=== PATIENT | male | born 1955 | race African-American/Black ===

== ENCOUNTER 2017-04-22 05:45 | Inpatient (IN) | payer OTHER ==
[2017-04-22] MEDS: SODIUM CHLOR 0.9% 1000 ML INJ 1,000 ML IV SCH ×2 (01:43→11:49)
[2017-04-22 05:40] VITALS: BP 113/66; PULSE 86; RESP 17; TEMP 97.4; O2SAT 100
[~2017-04-22 05:45] MED LIST: BISACODYL 10 MG SUPP RECTAL PRN; LACTULOSE SYRUP 20 GM/30 ML CUP PO PRN; MAGNESIUM HYDROXIDE SUSP 30 ML CUP PO PRN; MORPHINE SULFATE 4 MG/ML INJ IV PUSH PRN; NALOXONE HCL 0.4 MG/ML AMP IV PUSH PRN; ONDANSETRON HCL 4 MG/2 ML VIAL IVP PRN; SENNOSIDES 8.6 MG TAB PO PRN; SODIUM CHLORIDE 0.9% FLUSH 10 ML FLUSH IV FLUSH PRN
[2017-04-22 08:00] VITALS: BP 117/66; PULSE 94; RESP 18; TEMP 99.1; O2SAT 100
--- NOTE | 2017-04-22 10:33 | HHI.HP ---
HPI Service CP Hospitalists Primary Care Physician Non-Staff Admission Diagnosis prostate mass uti/ possible sepsis Travel History International Travel<30 Days: No Contact w/Intl Traveler <30 Da: No History of Present Illness Pt is 61 yo male presenting to ED with weakness, fever/chills, and rectal pain. Pt says he had some known microscopic blood in urine for quite a while. Pt reports following with Dr Dinh [facility] in [place]. Pt says he was told of an enlarged prostate in the past and elevated psa. Pt says a prostate bx was done last yr and reports were negative for malignancy. Lately he noticed more hematuria and a CT a/p was done last week and a Cystoscopy on Monday. On Monday he developed fevers/chills and weakness. These symptoms persisted. He was unable to go to work. Developed n/v and some dysuria. Pressure in rectum area. Given bactrim Monday by Urology but pt sx's persisted and presented to ED and transferred here. CT imaging concerning for enlarged prostate and masslike area extending to rectal area. vanco and zosyn given in ED. Pt says his fever at home was up to 105. Review of Systems Other fevers weakness achy n/v dysuria rectal pain/pressure Past Family Social History Past Medical History enlarged prostate "prostate bx" 2015.."neg" cystoscopy last week by Dr Dinh in [place]. reported neg by pt. hematuria right shoulder/bilateral knee arthroscopic surgery Reported Medications bactrim x 1 day Allergies: Coded Allergies: No Known Allergies (Unverified , 04/21/17) Family History brother prostate ca Social History no tob/etoh Physical Exam Vital Signs nad heart reg lung cta abd s/nt/bs ext no edema Vital Signs Date Time Temp Pulse Resp B/P (MAP) Pulse Ox O2 Delivery O2 Flow Rate FiO2 04/22/17 08:00 99.1 94 18 117/66 (83) 100 04/22/17 05:40 97.4 86 17 113/66 (82) 100 Caprini VTE Risk Assessment Caprini Risk Assessment Model Point Value = 1 Point Value = 2 Point Value = 3 Point Value = 5 Age 41-60 Minor surgery BMI > 25 kg/m2 Swollen legs Varicose veins or History of unexplained or recurrent spontaneous Oral contraceptives or hormone replacement Sepsis (< 1 month) Serious lung disease, including pneumonia (< 1 month) Abnormal pulmonary function Acute myocardial infarction Congestive heart failure (< 1 month) History of inflammatory bowel disease Medical patient at bed rest Age 61-74 Arthroscopic surgery Major open surgery (> 45 min) Laparoscopic surgery (> 45 min) Malignancy Confined to bed (> 72 hours) Immobilizing plaster cast Central venous access Age >= 75 History of VTE Family history of VTE Factor V Leiden Prothrombin [id number] Lupus anticoagulant Anticardiolipin antibodies Elevated serum homocysteine Heparin-induced thrombocytopenia Other congenital or acquired thrombophilia Stroke (< 1 month) Elective arthroplasty Hip, pelvis, or leg fracture Acute spinal cord injury (< 1 month) Prophylaxis Regimen Total Risk Factor Score Risk Level Prophylaxis Regimen 0-1 Low Early ambulation 2 Moderate Order ONE of the following: *Sequential Compression Device (SCD) *Heparin 5000 units SQ BID 3-4 Higher Order ONE of the following medications: *Heparin 5000 units SQ TID *Enoxaparin/Lovenox 40 mg SQ daily (WT < 150 kg, CrCl > 30 mL/min) *Enoxaparin/Lovenox 30 mg SQ daily (WT < 150 kg, CrCl > 10-29 mL/min) *Enoxaparin/Lovenox 30 mg SQ BID (WT < 150 kg, CrCl > 30 mL/min) AND/OR *Sequential Compression Device (SCD) 5 or more Highest Order ONE of the following medications: *Heparin 5000 units SQ TID (Preferred with Epidurals) *Enoxaparin/Lovenox 40 mg SQ daily (WT < 150 kg, CrCl > 30 mL/min) *Enoxaparin/Lovenox 30 mg SQ daily (WT < 150 kg, CrCl > 10-29 mL/min) *Enoxaparin/Lovenox 30 mg SQ BID (WT < 150 kg, CrCl > 30 mL/min) AND *Sequential Compression Device (SCD) Assessment and Plan Problem List: (1) Prostate mass ICD Codes: N42.9 - Disorder of prostate, unspecified Status: Acute Plan: 1. Massive prostate 7cm with apparent mass projecting toward rectum around 4cm. concerning for malignancy. 2. uti after cystoscopy on Monday with probably sepsis CRS consulted by ED...will discuss...?Urology gentle ivf cont broad spectrum abx to cover urine f/u blood and urine cx's obtain records from [place]. (2) Hematuria ICD Codes: R31.9 - Hematuria, unspecified Status: Acute (3) UTI (urinary tract infection) ICD Codes: N39.0 - Urinary tract infection, site not specified Status: Acute Braeden Colvin MD Apr 22, 2017 10:33
[2017-04-22] MEDS ORDERED: ONDANSETRON HCL 4 MG/2 ML VIAL IV PUSH PRN (10:45)
[2017-04-22] MEDS: ACETAMINOPHEN 325 MG TAB PO PRN ×2 (11:41→20:00)
[2017-04-22] MEDS: PIPERACIL-TAZO 3.375 GM PREMIX 50 ML IV SCH ×3 (11:42→22:59)
[2017-04-22] MEDS: SODIUM CHLORIDE 0.9% FLUSH 10 ML FLUSH IV FLUSH SCH ×2 (11:49→20:00)
[2017-04-22] MEDS: DOCUSATE SODIUM 50 MG/SENNA 8.6 MG TAB PO SCH ×2 (11:50→20:00)
--- NOTE | 2017-04-22 11:53 | HHI.PR ---
Subjective Remarks C/R Surg Events reviewed - ?fever, rectal pain, mass in prostate area pressing on rectal wall BM normal, no BRB, no diarrhea, some tenesmus, Colon several yrs ago - few polyps No F. Hx colon cancer Objective - Vital Signs Date Time Temp Pulse Resp B/P (MAP) Pulse Ox O2 Delivery O2 Flow Rate FiO2 04/22/17 08:00 99.1 94 18 117/66 (83) 100 Other Results PE alert Abd - soft, flat, non-tender Rectal -lg prostate, rectal wall smooth, no BRB, no fluctuence A/P Assessment and Plan Imp: reviewed CT - old CT pending films seems to be prostate enlargement, ?mass ?fever - abscess no obv rectal involvement on PE, will discuss with Urology Frandy Barahona MD Apr 22, 2017 11:53
[2017-04-22 12:00] VITALS: BP 109/57; PULSE 103; RESP 18; TEMP 102.1; O2SAT 98
[2017-04-22 12:55] LABS: ANION GAP 10 MEQ/L (5-15); AST (GOT) 20 U/L (15-37); BICARBONATE 23.9 MEQ/L (21.0-32.0); BLOOD UREA NITROGEN 17 MG/DL (7-18); CHLORIDE 103 MEQ/L (98-107); GLOMERULAR FILTRATION RATE 87 ML/MIN (>89); POTASSIUM 3.7 MEQ/L (3.5-5.1); SODIUM (NA) 137 MEQ/L (136-145)
[2017-04-22 12:58] LABS: ALKALINE PHOSPHATASE 78 U/L (45-117); ALT (GPT) 38 U/L (12-78); TOTAL BILIRUBIN ADULT 0.8 MG/DL (0.2-1.0)
[2017-04-22 16:00] VITALS: BP 112/66; PULSE 101; RESP 18; TEMP 96.5; O2SAT 100
--- NOTE | 2017-04-22 18:21 | PD.CONS ---
HPI Service Urology Consult Requested By Primary Care Physician Non-Staff Diagnosis: (1) Prostate mass ICD Code: N42.9 - Disorder of prostate, unspecified (2) Hematuria ICD Code: R31.9 - Hematuria, unspecified (3) UTI (urinary tract infection) ICD Code: N39.0 - Urinary tract infection, site not specified History of Present Illness 61yo male with history of BPH and intermittent hematuria followed by Dr. Dinh [facility] in [place] seen in consultation for UTI and large prostate with questionable mass. Patient was evaluated by Dr. Dinh due to his large prostate where he underwent a recent cystoscopy this week. Subsequently he developed fevers and increasing difficulty in voiding. He presented tot [facility] ED and then transferred to [facility]. Patient was found to have a significantly enlarged prostate on CT scan yesterday with questionable mass/abscess also noted on the left posterior aspect of the prostate. Patient also had one episode of fevers today as high as 102. Currently comfortable, no hematuria. Voiding well, however reports slow urinary stream. Was started on Finasteride, however he stoped this as the side effects were unpleasant. Of note, patient had a prostate biopsy in the past which was negative. Review of Systems ROS Limitations: Clinical Condition Constitutional: COMPLAINS OF: Fever Endocrine: DENIES: Heat/cold intolerance Eyes: DENIES: Blurred vision Ears, nose, mouth, throat: DENIES: Hearing loss Respiratory: DENIES: Apneas Cardiovascular: DENIES: Chest pain Gastrointestinal: DENIES: Abdominal pain Genitourinary: COMPLAINS OF: Urinary frequency, Urgency, Hematuria, Dysuria Musculoskeletal: DENIES: Back pain Integumentary: DENIES: Abnormal pigmentation Hematologic/lymphatic: DENIES: Bruising Neurologic: DENIES: Abnormal gait, Headache Psychiatric: DENIES: Anxiety Except as stated in HPI: all other systems reviewed are Neg Past Family Social History Past Medical History enlarged prostate "prostate bx" 2016.."neg" cystoscopy last week by Dr Dinh in [place]. reported neg by pt. hematuria right shoulder/bilateral knee arthroscopic surgery Past Surgical History prostate bx 2015. right shoulder/bilateral knee arthroscopic surgery Reported Medications Current Medications Medications (Trade) Dose Ordered Sig/James Route Start Time Stop Time Status Last Admin Sodium Chloride 1,000 ml @ 60 mls/hr [id number] IV 04/22/17 01:43 04/22/17 11:49 (NS Flush) 2 ml UNSCH PRN IV FLUSH 04/22/17 01:45 (NS Flush) 2 ml BID IV FLUSH 04/22/17 09:00 04/22/17 11:49 (Morphine Inj) 4 mg Q6HR PRN IV PUSH 04/22/17 01:45 (Narcan Inj) 0.4 mg UNSCH PRN IV PUSH 04/22/17 01:45 (Jessica-Colace) 1 tab BID PO 04/22/17 09:00 04/22/17 11:50 (Milk Of Magnesia Liq) 30 ml Q12H PRN PO 04/22/17 01:45 (Senokot) 17.2 mg Q12H PRN PO 04/22/17 01:45 (Dulcolax Supp) 10 mg DAILY PRN RECTAL 04/22/17 01:45 (Lactulose Liq) 30 ml DAILY PRN PO 04/22/17 01:45 Piperacillin Sod/ Tazobactam Sod 50 ml @ 100 mls/hr Q6H IV 04/22/17 11:00 04/22/17 17:39 (Zofran Inj) 4 mg Q4HR PRN IV PUSH 04/22/17 10:45 (Tylenol) 650 mg Q4H PRN PO 04/22/17 11:15 04/22/17 11:41 Allergies: Coded Allergies: No Known Allergies (Unverified , 04/21/17) Active Ordered Medications Current Medications Medications (Trade) Dose Ordered Sig/James Route Start Time Stop Time Status Last Admin Sodium Chloride 1,000 ml @ 60 mls/hr [id number] IV 04/22/17 01:43 04/22/17 11:49 (NS Flush) 2 ml UNSCH PRN IV FLUSH 04/22/17 01:45 (NS Flush) 2 ml BID IV FLUSH 04/22/17 09:00 04/22/17 11:49 (Morphine Inj) 4 mg Q6HR PRN IV PUSH 04/22/17 01:45 (Narcan Inj) 0.4 mg UNSCH PRN IV PUSH 04/22/17 01:45 (Jessica-Colace) 1 tab BID PO 04/22/17 09:00 04/22/17 11:50 (Milk Of Magnesia Liq) 30 ml Q12H PRN PO 04/22/17 01:45 (Senokot) 17.2 mg Q12H PRN PO 04/22/17 01:45 (Dulcolax Supp) 10 mg DAILY PRN RECTAL 04/22/17 01:45 (Lactulose Liq) 30 ml DAILY PRN PO 04/22/17 01:45 Piperacillin Sod/ Tazobactam Sod 50 ml @ 100 mls/hr Q6H IV 04/22/17 11:00 04/22/17 17:39 (Zofran Inj) 4 mg Q4HR PRN IV PUSH 04/22/17 10:45 (Tylenol) 650 mg Q4H PRN PO 04/22/17 11:15 04/22/17 11:41 Family History brother prostate ca Social History no tob/etoh Physical Exam Vital Signs Date Time Temp Pulse Resp B/P (MAP) Pulse Ox O2 Delivery O2 Flow Rate FiO2 04/22/17 16:00 96.5 101 18 112/66 (81) 100 04/22/17 12:00 102.1 103 18 109/57 (74) 98 04/22/17 08:00 99.1 94 18 117/66 (83) 100 04/22/17 05:40 97.4 86 17 113/66 (82) 100 Physical Exam GENERAL: This is a well-nourished, well-developed patient, in no apparent distress. SKIN: No rashes, ecchymoses or lesions. Cool and dry. HEAD: Atraumatic. Normocephalic. EYES: Extraocular motions intact. No scleral icterus. No injection or drainage. ENT: Nose without bleeding, purulent drainage. Airway patent. NECK: Trachea midline. No JVD CARDIOVASCULAR: normal pulses RESPIRATORY: nonlabored, equal chest rise GASTROINTESTINAL: Abdomen soft, non-tender, nondistended. GENITOURINARY: Uncircumcised phallus, normal urethral meatus. bilateral descended testis, no masses. FRANCIA identified large palpable prostate, somewhat soft/boggy, tender to palpation. No rectal mass, however prostate appears to be causing mass effect on the anterior wall of the rectum MUSCULOSKELETAL: Extremities without clubbing, cyanosis, or edema. NEUROLOGICAL: Awake and alert. Motor and sensory grossly within normal limits. Normal speech. Lab results reviewed: Yes Laboratory Tests Test 04/22/17 12:17 04/22/17 16:36 Blood Urea Nitrogen 17 Creatinine 1.05 Random Glucose 131 Total Protein 5.9 Albumin 2.8 Calcium Level 8.4 Alkaline Phosphatase 78 Aspartate Amino Transf (AST/SGOT) 20 Alanine Aminotransferase (ALT/SGPT) 38 Total Bilirubin 0.8 Sodium Level 137 Potassium Level 3.7 Chloride Level 103 Carbon Dioxide Level 23.9 Anion Gap 10 Estimat Glomerular Filtration Rate 87 Lactic Acid Level 1.6 Prostate Specific Antigen 18.31 Result Diagram: 04/22/17 1217 Personally reviewed images: Yes Imaging CT images reviewed from 04/21/17: Large prostate with significant median lobe intravesical component. Also with posterior left prostate lobe adjacent to rectum with an area of soft tissue density/fluid that appears different than remainder of prostate. Assessment and Plan Problem List: (1) Hematuria ICD Code: R31.9 - Hematuria, unspecified Status: Acute (2) UTI (urinary tract infection) ICD Code: N39.0 - Urinary tract infection, site not specified Status: Acute (3) Prostate mass ICD Code: N42.9 - Disorder of prostate, unspecified Status: Acute Assessment and Plan -Concern for UTI, however no UA or culture noted in the system. Will order now, as well as CBC -Start Flomax -Personally reviewed CT scan, findings concerning for possible prostate abscess , however not in the typical anterior location -Continue broad spectrum antibiotics. Patient is not septic and appears comfortable at this time -If his clinic picture does not improve, will consider drainage of the prostate fluid collection/mass/abscess via IR drain. This would be a very dificult area to reach via TURP and would require extensive resection to reach given his large prostate -Of note, cancelled the PSA planned for tomorrow as this will certainly be elevated given the recent cystoscopy, likely UTI, and possible prostate abscess. PSA will not be helpful in treatment during this hospitalization -Will follow closely. Chad Tucker MD Apr 22, 2017 18:20
[2017-04-22] MEDS: TAMSULOSIN HCL 0.4 MG CAP PO SCH (19:45)
[2017-04-22 20:00] VITALS: BP 137/71; PULSE 104; RESP 20; TEMP 102.9; O2SAT 99
[2017-04-22 20:58] LABS: AUTOMATED NEUTROPHIL # 3.9 TH/MM3 (1.8-7.7); BASOPHIL % 0.6 % (0.0-2.0); EOSINOPHIL % 0.3 % (0.0-4.0); HEMATOCRIT 40.1 % (39.0-51.0); HEMO FLAGS DIFF FINAL; LYMPH % 4.6 % (9.0-44.0); LYMPHOCYTE # 0.2 TH/MM3 (1.0-4.8); MEAN CELL VOLUME 82.4 FL (80.0-100.0); MEAN CORPUSCULAR HEMOGLOBIN 27.1 PG (27.0-34.0); MEAN CORPUSCULAR HGB CONC 32.9 % (32.0-36.0); MONO % 5.4 % (0.0-8.0); NEUT % 89.1 % (16.0-70.0); PLATELET COUNT 129 TH/MM3 (150-450); RED BLOOD COUNT 4.87 MIL/MM3 (4.50-5.90); RED CELL DISTRIBUTION WIDTH 13.7 % (11.6-17.2); WHITE BLOOD COUNT 4.4 TH/MM3 (4.0-11.0)
[2017-04-23] VITALS (8 sets, daily range): BP systolic 105–138; BP diastolic 54–76; PULSE 73–101; RESP 17–20; TEMP 98.6–101.7; O2SAT 98–100
[2017-04-23] MEDS: SODIUM CHLOR 0.9% 1000 ML INJ 1,000 ML IV SCH (04:15)
[2017-04-23] MEDS: PIPERACIL-TAZO 3.375 GM PREMIX 50 ML IV SCH ×4 (04:27→23:11)
[2017-04-23] MEDS: ACETAMINOPHEN 325 MG TAB PO PRN ×2 (04:45→16:15)
[2017-04-23 07:16] LABS: AUTOMATED NEUTROPHIL # 2.6 TH/MM3 (1.8-7.7); BASOPHIL % 0.8 % (0.0-2.0); EOSINOPHIL # 0.1 TH/MM3 (0-0.4); EOSINOPHIL % 1.5 % (0.0-4.0); HEMATOCRIT 39.2 % (39.0-51.0); HEMO FLAGS DIFF FINAL; LYMPH % 9.4 % (9.0-44.0); LYMPHOCYTE # 0.3 TH/MM3 (1.0-4.8); MEAN CELL VOLUME 81.9 FL (80.0-100.0); MEAN CORPUSCULAR HEMOGLOBIN 27.3 PG (27.0-34.0); MEAN CORPUSCULAR HGB CONC 33.4 % (32.0-36.0); MONO % 14.5 % (0.0-8.0); NEUT % 73.8 % (16.0-70.0); PLATELET COUNT 123 TH/MM3 (150-450); RED BLOOD COUNT 4.79 MIL/MM3 (4.50-5.90); RED CELL DISTRIBUTION WIDTH 13.4 % (11.6-17.2); WHITE BLOOD COUNT 3.6 TH/MM3 (4.0-11.0)
[2017-04-23 07:20] LABS: BICARBONATE 24.8 MEQ/L (21.0-32.0); POTASSIUM 3.7 MEQ/L (3.5-5.1)
[2017-04-23] MEDS: SODIUM CHLORIDE 0.9% FLUSH 10 ML FLUSH IV FLUSH SCH ×2 (09:00→20:33)
[2017-04-23] MEDS: DOCUSATE SODIUM 50 MG/SENNA 8.6 MG TAB PO SCH ×2 (09:50→20:31)
[2017-04-23] MEDS: TAMSULOSIN HCL 0.4 MG CAP PO SCH (09:50)
--- NOTE | 2017-04-23 10:12 | HHI.PR ---
Subjective Remarks doing better. no rigors. Objective Vitals heart reg lung cta abd s/nt ext no edema Vital Signs Date Time Temp Pulse Resp B/P (MAP) Pulse Ox O2 Delivery O2 Flow Rate FiO2 04/23/17 08:00 98.7 73 18 106/60 (75) 98 04/23/17 06:15 98.9 04/23/17 04:00 100.9 04/23/17 00:00 98.6 90 20 105/54 (71) 98 04/22/17 21:00 20 04/22/17 20:00 102.9 104 20 137/71 (93) 99 04/22/17 16:00 96.5 101 18 112/66 (81) 100 04/22/17 12:00 102.1 103 18 109/57 (74) 98 Result Diagram: 04/23/17 0520 04/23/17 0520 A/P Problem List: (1) Prostate mass ICD Codes: N42.9 - Disorder of prostate, unspecified Status: Acute Plan: 1. Massive prostate 7cm with apparent mass projecting toward rectum around 4cm. concerning for malignancy vs abscess per urology. 2. uti after cystoscopy on Monday with gnr sepsis blood cx /4 gnr on 04/21. abnormal u/a..but ngtd on urine cx Seen by CRS and Urology discussed with Dr Barahona. Await Urology decision for bx or aspiration of mass. cont zosyn and f/u final urine and blood cx's stop ivf Last week CT a/p and report brought in by and placed on chart for comparison. CT a/p with and w/out 04/12: prostate 6.6 x 6.2 cm no mention of the 4cm posterior mass. (2) Hematuria ICD Codes: R31.9 - Hematuria, unspecified Status: Acute (3) UTI (urinary tract infection) ICD Codes: N39.0 - Urinary tract infection, site not specified Status: Acute Braeden Colvin MD Apr 23, 2017 10:12
--- NOTE | 2017-04-23 17:04 | HHI.PR ---
Subjective Patient symptoms today Clinically improved, however with persistent intermittent fevers. Overall feels better. Voiding well with the flomax Objective Vital Signs Vital Signs Date Time Temp Pulse Resp B/P (MAP) Pulse Ox O2 Delivery O2 Flow Rate FiO2 04/23/17 12:00 99.3 96 18 134/72 (92) 99 04/23/17 08:00 98.7 73 18 106/60 (75) 98 04/23/17 06:15 98.9 04/23/17 04:00 100.9 04/23/17 00:00 98.6 90 20 105/54 (71) 98 04/22/17 21:00 20 04/22/17 20:00 102.9 104 20 137/71 (93) 99 Intake & Output 04/23/17 04/23/17 07:00 19:00 Intake Total 1434 ml Output Total 1325 ml Balance 109 ml Intake Oral 360 ml IV Total 1074 ml Output Urine Total 1325 ml Result Diagram: 04/23/1751904/23/17519 Objective Remarks NAD, AAOx3 Resp NL Ab S/NT Voiding well, clear urine Medications and IVs Current Medications Medications (Trade) Dose Ordered Sig/James Route Start Time Stop Time Status Last Admin (NS Flush) 2 ml UNSCH PRN IV FLUSH 04/22/17 01:45 (NS Flush) 2 ml BID IV FLUSH 04/22/17 09:00 04/22/17 11:49 (Morphine Inj) 4 mg Q6HR PRN IV PUSH 04/22/17 01:45 (Narcan Inj) 0.4 mg UNSCH PRN IV PUSH 04/22/17 01:45 (Jessica-Colace) 1 tab BID PO 04/22/17 09:00 04/23/17 09:50 (Milk Of Magnesia Liq) 30 ml Q12H PRN PO 04/22/17 01:45 (Senokot) 17.2 mg Q12H PRN PO 04/22/17 01:45 (Dulcolax Supp) 10 mg DAILY PRN RECTAL 04/22/17 01:45 (Lactulose Liq) 30 ml DAILY PRN PO 04/22/17 01:45 Piperacillin Sod/ Tazobactam Sod 50 ml @ 100 mls/hr Q6H IV 04/22/17 11:00 04/23/17 11:23 (Zofran Inj) 4 mg Q4HR PRN IV PUSH 04/22/17 10:45 (Tylenol) 650 mg Q4H PRN PO 04/22/17 11:15 04/23/17 16:15 (Flomax) 0.4 mg DAILY PO 04/22/17 18:15 04/23/17 09:50 Assessment and Plan Problem List: (1) Hematuria ICD Code: R31.9 - Hematuria, unspecified Status: Acute (2) UTI (urinary tract infection) ICD Code: N39.0 - Urinary tract infection, site not specified Status: Acute (3) Prostate mass ICD Code: N42.9 - Disorder of prostate, unspecified Status: Acute Assessment and Plan -Continue antibiotics -Given the persistent and intermittent fevers, we will request IR to place drain in what is felt to be the prostate abscess located in the left posterior base of the prostate -Will discuss case with Dr. Dinh -NPO at midnight Chad Tucker MD Apr 23, 2017 17:04
[2017-04-24 00:18] VITALS: BP 141/79; PULSE 79; RESP 17; TEMP 99.1; O2SAT 100
[2017-04-24 04:05] VITALS: BP 133/77; PULSE 80; RESP 17; TEMP 99.2; O2SAT 100
[2017-04-24] MEDS: PIPERACIL-TAZO 3.375 GM PREMIX 50 ML IV SCH ×4 (05:17→23:47)
[2017-04-24 08:00] VITALS: BP 130/79; PULSE 81; RESP 16; TEMP 97.9; O2SAT 98
[2017-04-24] MEDS: DOCUSATE SODIUM 50 MG/SENNA 8.6 MG TAB PO SCH ×2 (08:00→21:00)
[2017-04-24] MEDS: TAMSULOSIN HCL 0.4 MG CAP PO SCH (09:00)
[2017-04-24] MEDS: SODIUM CHLORIDE 0.9% FLUSH 10 ML FLUSH IV FLUSH SCH ×2 (09:00→21:00)
--- NOTE | 2017-04-24 11:20 | HHI.PR ---
Subjective Remarks Pt seen for Dr Barahona. Pt c/o bloating. Denies N or V. No BMs thru colostomy. Objective Vital Signs Date Time Temp Pulse Resp B/P (MAP) Pulse Ox O2 Delivery O2 Flow Rate FiO2 04/24/17 08:00 97.9 81 16 130/79 (96) 98 04/24/17 04:05 99.2 80 17 133/77 (95) 100 04/24/17 00:18 99.1 79 17 141/79 (99) 100 04/23/17 20:12 98.8 85 17 138/76 (96) 100 04/23/17 17:15 99.2 99 04/23/17 16:00 101.7 101 18 131/70 (90) 98 04/23/17 12:00 99.3 96 18 134/72 (92) 99 I/O 04/23/17 04/23/17 04/23/17 04/24/17 04/24/17 04/24/17 07:00 15:00 23:00 07:00 15:00 23:00 Intake Total 1434 ml 50 ml 2450 ml 0 ml Output Total 1325 ml 975 ml Balance 109 ml 50 ml 2450 ml -975 ml Intake Oral 360 ml 240 ml 0 ml IV Total 1074 ml 50 ml 2210 ml Output Urine Total 1325 ml 975 ml # Voids 5 # Bowel Movements 1 2 Result Diagram: 04/23/1751904/23/17519 Objective Remarks VS-S Abd: Distended with tympany. Large sero sanguinous fluid drainage. Mid portion of wound has several debi removed and packing removed. Palpation reveals fascia and suture intact with 1 cm gap. Cannot tell if there is any significant fascial dehiscence or loops of bowel outside fascia. Assessment and Plan Assessment and Plan Stable-Looks good- Ileus with distention. No vomiting Plan: Will D/W Dr Barahona. Possible N/G. Possible CT to determine dehiscence without removing debi. Isaak Castellanos MD Apr 24, 2017 11:20
[2017-04-24 12:00] VITALS: BP 122/72; PULSE 81; RESP 18; TEMP 96.4; O2SAT 99
--- NOTE | 2017-04-24 13:25 | RADRPT ---
EXAM DATE/TIME: 04/24/2017 00:00 [facility] COMPARISON: CT ABDOMEN & PELVIS W CONTRAST, April 21, 2017, 23:31. INDICATIONS : Abscess drain. FINDINGS: There is a mass involving the left posterior prostate gland. No drainable abscess seen. Pelvic MRI ma y be warranted. CONCLUSION: 1. Mass involving the left posterior prostate gland could be related to an area of prostatitis or und erlying mass. No drainable abscess. 2. Pelvic MRI recommended. Demetrius King MD on April 24, 2017 at 13:16 Board Certified Radiologist. This report was verified electronically.
--- NOTE | 2017-04-24 13:42 | HHI.PR ---
Subjective Remarks No new complaints. Pt feels much better from admission. No fever, no chills. Objective Vitals Vital Signs Date Time Temp Pulse Resp B/P (MAP) Pulse Ox O2 Delivery O2 Flow Rate FiO2 04/24/17 08:00 97.9 81 16 130/79 (96) 98 04/24/17 04:05 99.2 80 17 133/77 (95) 100 04/24/17 00:18 99.1 79 17 141/79 (99) 100 04/23/17 20:12 98.8 85 17 138/76 (96) 100 04/23/17 17:15 99.2 99 04/23/17 16:00 101.7 101 18 131/70 (90) 98 Result Diagram: 04/23/1751904/23/17519 Objective Remarks GENERAL: This is a well-nourished, well-developed patient, in no apparent distress. CARDIOVASCULAR: Regular rate and rhythm without murmurs, gallops, or rubs. RESPIRATORY: Clear to auscultation. Breath sounds equal bilaterally. No wheezes , rales, or rhonchi. GASTROINTESTINAL: Abdomen soft, non-tender, nondistended. Normal active bowel sounds MUSCULOSKELETAL: Extremities without clubbing, cyanosis, or edema. NEURO: Alert & Oriented x4 to person, place, time, situation. Moves all ext x4 A/P Problem List: (1) Prostate mass ICD Codes: N42.9 - Disorder of prostate, unspecified Status: Acute Plan: - comgmt with Urology & CRS - probable prostate abscess - blood culture (04/21/17) growing Pseudomonas. Final sensitivities should be available tomorrow morning. - CT abd/pelvis (04/21/17) - Massive prostate 7cm with apparent mass projecting toward rectum around 4cm concerning for malignancy vs abscess per urology. - Previous CT a/p (04/12/17) & report brought to Hospital by pt's and placed on chart for comparison - prostate 6.6 x 6.2 cm no mention of the 4cm posterior mass. - Case d/w Dr. Hidalgo (04/24/17). - IR felt projection from prostate too small to drain or biopsy - Recommended discharge once afebrile x 24 hours and f/u with Dr. Dinh. - Case d/w Dr. Crane, ID. She will consult (2) Hematuria ICD Codes: R31.9 - Hematuria, unspecified Status: Acute Plan: - see above (3) Pseudomonal bacteremia ICD Codes: R78.81 - Bacteremia Plan: - see above (4) UTI (urinary tract infection) ICD Codes: N39.0 - Urinary tract infection, site not specified Status: Acute Plan: - bacteruria - urine cx (04/21/17) --> NO growth Avelino Thorpe DO Apr 24, 2017 13:42
--- NOTE | 2017-04-24 14:26 | PD.ID.CON ---
History of Present Illness Service ID Consult Requested By Reason for Consult Evaluation and Mment of Pseudomonas bacteremia. Primary Care Physician Non-Staff Diagnoses: History of Present Illness is a 61 y.o AAM with PMHx of prostate enlargement, hematuria who presented to the [facility] ED in [place] with weakness, fever/chills, and rectal pain. Pt says he had some known microscopic blood in urine for quite a while. Pt reports following with Dr Dinh [facility] in [place]. Pt says he was told of an enlarged prostate in the past and elevated psa. Pt says a prostate bx was done last yr due to his brother having from prostate cancer. He reports the biopsy was negative for malignancy. Lately he noticed more hematuria and a CT a/p was done last week and a Cystoscopy as outpt 1 week prior to admission. The day after the procedure he went to work and later in the evening he did not feel well. On Monday last week he developed fevers/chills and weakness. These symptoms persisted. He was unable to go to work. Developed n/v and some dysuria. Pressure in rectum area. Given bactrim or Cipro by urology (he reports taking a pill twice a day). He took a pill or two of antibiotic and due to worsening clinical condition presented to the ED at [facility]. He was [facility]. Urology has seen pt. CT s/o prostatitis but no abscess. IR could not drain as no fluid collection. No plans for surgical intervention. Patient was started on Zosyn IV and Vanco IV. Pertinent positives and negatives: Patient reports fevers 105.3 F and chills at home. weakness achy n/v dysuria rectal pain/pressure ID was consulted for evaluation and Mment of PSAE bacteremia and prostatitis. Review of Systems Constitutional: COMPLAINS OF: Fever, Chills, DENIES: Diaphoretic episodes, Fatigue, Weight gain, Weight loss, Dizziness, Change in appetite, Night Sweats Endocrine: DENIES: Heat/cold intolerance, Polydipsia, Polyuria, Polyphagia Eyes: DENIES: Blurred vision, Diplopia, Eye inflammation, Eye pain, Vision loss , Photosensitivity, Double Vision Ears, nose, mouth, throat: DENIES: Tinnitus, Hearing loss, Vertigo, Nasal discharge, Oral lesions, Throat pain, Hoarseness, Ear Pain, Running Nose, Epistaxis, Sinus Pain, Toothache, Odynophagia Respiratory: DENIES: Apneas, Cough, Snoring, Wheezing, Hemoptysis, Sputum production, Shortness of breath Cardiovascular: DENIES: Chest pain, Palpitations, Syncope, Dyspnea on Exertion , PND, Lower Extremity Edema, Orthopnea, Claudication Gastrointestinal: DENIES: Abdominal pain, Black stools, Bloody stools, Constipation, Diarrhea, Nausea, Vomiting, Difficulty Swallowing, Anorexia Genitourinary: DENIES: Sexual dysfunction, Urinary frequency, Urinary incontinence, Urgency, Hematuria, Dysuria, Nocturia, Penile Discharge, Testicular Pain, Testicular Swelling Musculoskeletal: DENIES: Joint pain, Muscle aches, Stiffness, Joint Swelling, Back pain, Neck pain Integumentary: DENIES: Abnormal pigmentation, Nail changes, Pruritus, Rash Immunologic/allergic: DENIES: Eczema, Urticaria Neurologic: DENIES: Abnormal gait, Headache, Localized weakness, Paresthesias, Seizures, Speech Problems, Tremor, Poor Balance Psychiatric: DENIES: Anxiety, Confusion, Mood changes, Depression, Hallucinations, Agitation, Suicidal Ideation, Homicidal Ideation, Delusions Except as stated in HPI: all other systems reviewed are Neg Past Family Social History Allergies: Coded Allergies: No Known Allergies (Unverified , 04/21/17) Past Medical History enlarged prostate "prostate bx" 2015.."neg" cystoscopy last week by Dr Dinh in [place]. reported neg by pt. hematuria right shoulder/bilateral knee arthroscopic surgery Past Surgical History prostate bx 2016: negative. cystoscopy right shoulder/bilateral knee arthroscopic surgery Reported Medications bactrim ? or ? cipro was twice a day. Cipro x 1 one pill post procedure. Active Ordered Medications enlarged prostate "prostate bx" 2015.."neg" cystoscopy last week by Dr Dinh in [place]. reported neg by pt. 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 Physical Exam Vital Signs Vital Signs Date Time Temp Pulse Resp B/P (MAP) Pulse Ox O2 Delivery O2 Flow Rate FiO2 04/24/17 12:00 96.4 81 18 122/72 (89) 99 04/24/17 08:00 97.9 81 16 130/79 (96) 98 04/24/17 04:05 99.2 80 17 133/77 (95) 100 04/24/17 00:18 99.1 79 17 141/79 (99) 100 04/23/17 20:12 98.8 85 17 138/76 (96) 100 04/23/17 17:15 99.2 99 04/23/17 16:00 101.7 101 18 131/70 (90) 98 Physical Exam GENERAL: This is a well-nourished, well-developed patient, in no apparent distress. SKIN: No rashes, ecchymoses or lesions. Cool and dry. HEAD: Atraumatic. Normocephalic. No temporal or scalp tenderness. EYES: Pupils equal round and reactive. Extraocular motions intact. No scleral icterus. No injection or drainage. ENT: Nose without bleeding, purulent drainage or septal hematoma. Throat without erythema, tonsillar hypertrophy or exudate. Uvula midline. Airway patent. NECK: Trachea midline. Supple, nontender, no meningeal signs. CARDIOVASCULAR: Regular rate and rhythm without murmurs, gallops, or rubs. RESPIRATORY: Clear to auscultation. Breath sounds equal bilaterally. No wheezes , rales, or rhonchi. GASTROINTESTINAL: Abdomen soft, non-tender, nondistended. MUSCULOSKELETAL: Extremities without clubbing, cyanosis, or edema. No joint tenderness, effusion, or edema noted. No calf tenderness. Negative Homans sign bilaterally. NEUROLOGICAL: Awake and alert. Cranial nerves II through XII intact. Motor and sensory grossly within normal limits. Five out of 5 muscle strength in all muscle groups. Normal speech. Psych cooperative Rectal exam: deferred. IV line sites with no e.o infection. Laboratory Laboratory Tests Test 04/22/17 20:16 04/23/17 05:20 White Blood Count 4.4 TH/MM3 3.6 TH/MM3 Red Blood Count 4.87 MIL/MM3 4.79 MIL/MM3 Hemoglobin 13.2 GM/DL 13.1 GM/DL Hematocrit 40.1 % 39.2 % Mean Corpuscular Volume 82.4 FL 81.9 FL Mean Corpuscular Hemoglobin 27.1 PG 27.3 PG Mean Corpuscular Hemoglobin Concent 32.9 % 33.4 % Red Cell Distribution Width 13.7 % 13.4 % Platelet Count 129 TH/MM3 123 TH/MM3 Mean Platelet Volume 9.0 FL 9.1 FL Neutrophils (%) (Auto) 89.1 % 73.8 % Lymphocytes (%) (Auto) 4.6 % 9.4 % Monocytes (%) (Auto) 5.4 % 14.5 % Eosinophils (%) (Auto) 0.3 % 1.5 % Basophils (%) (Auto) 0.6 % 0.8 % Neutrophils # (Auto) 3.9 TH/MM3 2.6 TH/MM3 Lymphocytes # (Auto) 0.2 TH/MM3 0.3 TH/MM3 Monocytes # (Auto) 0.2 TH/MM3 0.5 TH/MM3 Eosinophils # (Auto) 0.0 TH/MM3 0.1 TH/MM3 Basophils # (Auto) 0.0 TH/MM3 0.0 TH/MM3 CBC Comment DIFF FINAL DIFF FINAL Differential Comment Laboratory Tests Test 04/23/17 05:20 Blood Urea Nitrogen 11 MG/DL Creatinine 0.88 MG/DL Random Glucose 103 MG/DL Calcium Level 8.2 MG/DL Sodium Level 139 MEQ/L Potassium Level 3.7 MEQ/L Chloride Level 104 MEQ/L Carbon Dioxide Level 24.8 MEQ/L Anion Gap 10 MEQ/L Estimat Glomerular Filtration Rate 107 ML/MIN BCX with PSAE, no resistance markers detected. Result Diagram: 04/23/17 0520 04/23/17 05 Imaging Last Impressions Consultation 04/24/17 0000 Signed Impressions: Service Date/Time: Monday, April 24, 2017 00:00 - CONCLUSION: 1. Mass involving the left posterior prostate gland could be related to an area of prostatitis or underlying mass. No drainable abscess. 2. Pelvic MRI recommended. Demetrius King MD Assessment and Plan Assessment and Plan Sepsis present on admission PSAE bacteremia Prostatitis likely source of infection. UA negative but pt recd some oral bid medication prior to admission ? bactrim ? cipro. Proctalgia: due to prostatitis. Hematuria history Recs Continue Zosyn IV for now. Follow cultures Follow clinically. Need records of which antibiotic was filled in at [facility] pharmacy post op and after fevers. D.w pt susceptibility data and repeat blood cultures will determine the ID plan. Patient reports he had a CT A/P pelvis few weeks back. would need to see if abscess was present then or not. This helps determine the length of time the bacteremia could have been present. sheila Moody. d/w pt and in room. Carmelina Crane MD Apr 24, 2017 14:26
--- NOTE | 2017-04-24 15:32 | HHI.PR ---
Subjective Patient symptoms today Improved clinically today; No fevers. Voiding improved as well Objective Vital Signs Vital Signs Date Time Temp Pulse Resp B/P (MAP) Pulse Ox O2 Delivery O2 Flow Rate FiO2 04/24/17 12:00 96.4 81 18 122/72 (89) 99 04/24/17 08:00 97.9 81 16 130/79 (96) 98 04/24/17 04:05 99.2 80 17 133/77 (95) 100 04/24/17 00:18 99.1 79 17 141/79 (99) 100 04/23/17 20:12 98.8 85 17 138/76 (96) 100 04/23/17 17:15 99.2 99 04/23/17 16:00 101.7 101 18 131/70 (90) 98 Intake & Output 04/24/17 04/24/17 07:00 19:00 Intake Total 240 ml Output Total 975 ml Balance -735 ml Intake Oral 240 ml Output Urine Total 975 ml # Voids 5 # Bowel Movements 3 Result Diagram: 04/23/17 0520 04/23/17 0520 Imaging Last 24 hours Impressions Consultation 04/24/17 0000 Signed Impressions: Service Date/Time: Monday, April 24, 2017 00:00 - CONCLUSION: 1. Mass involving the left posterior prostate gland could be related to an area of prostatitis or underlying mass. No drainable abscess. 2. Pelvic MRI recommended. Demetrius King MD Objective Remarks NAD, AAOx3 Resp NL Ab S/NT Medications and IVs Current Medications Medications (Trade) Dose Ordered Sig/James Route Start Time Stop Time Status Last Admin (NS Flush) 2 ml UNSCH PRN IV FLUSH 04/22/17 01:45 (NS Flush) 2 ml BID IV FLUSH 04/22/17 09:00 04/23/17 20:33 (Morphine Inj) 4 mg Q6HR PRN IV PUSH 04/22/17 01:45 (Narcan Inj) 0.4 mg UNSCH PRN IV PUSH 04/22/17 01:45 (Jsesica-Colace) 1 tab BID PO 04/22/17 09:00 04/23/17 20:31 (Milk Of Magnesia Liq) 30 ml Q12H PRN PO 04/22/17 01:45 (Senokot) 17.2 mg Q12H PRN PO 04/22/17 01:45 (Dulcolax Supp) 10 mg DAILY PRN RECTAL 04/22/17 01:45 (Lactulose Liq) 30 ml DAILY PRN PO 04/22/17 01:45 Piperacillin Sod/ Tazobactam Sod 50 ml @ 100 mls/hr Q6H IV 04/22/17 11:00 04/24/17 11:55 (Zofran Inj) 4 mg Q4HR PRN IV PUSH 04/22/17 10:45 (Tylenol) 650 mg Q4H PRN PO 04/22/17 11:15 04/23/17 16:15 (Flomax) 0.4 mg DAILY PO 04/22/17 18:15 04/23/17 09:50 Assessment and Plan Problem List: (1) Hematuria ICD Code: R31.9 - Hematuria, unspecified Status: Acute (2) UTI (urinary tract infection) ICD Code: N39.0 - Urinary tract infection, site not specified Status: Acute (3) Prostate mass ICD Code: N42.9 - Disorder of prostate, unspecified Status: Acute Assessment and Plan -Continue antibiotics; ID following -IR reports abscess/lesion in the prostate is too small to access, therefore no drain was placed -Patient continues to improve with conservative therapies. Therefore will hold off on any intervention and monitor closely. -Will follow Chad Tucker MD Apr 24, 2017 15:32
[2017-04-24 16:00] VITALS: BP 128/64; PULSE 93; RESP 18; TEMP 97.2; O2SAT 99
[2017-04-24 20:00] VITALS: BP 136/75; PULSE 74; RESP 16; TEMP 98.9; O2SAT 100
[2017-04-25 00:14] VITALS: BP 138/69; PULSE 73; RESP 16; TEMP 98.5; O2SAT 99
[2017-04-25] MEDS: PIPERACIL-TAZO 3.375 GM PREMIX 50 ML IV SCH ×2 (04:46→13:43)
[2017-04-25 08:00] VITALS: BP 109/85; PULSE 75; RESP 18; TEMP 96.2; O2SAT 100
[2017-04-25] MEDS: DOCUSATE SODIUM 50 MG/SENNA 8.6 MG TAB PO SCH (08:42)
[2017-04-25] MEDS: TAMSULOSIN HCL 0.4 MG CAP PO SCH (08:42)
[2017-04-25] MEDS: SODIUM CHLORIDE 0.9% FLUSH 10 ML FLUSH IV FLUSH SCH (08:42)
[2017-04-25 12:00] VITALS: BP 123/75; PULSE 85; RESP 18; TEMP 96.7; O2SAT 99
[2017-04-25 12:47] LABS: BASOPHIL # 0.1 TH/MM3 (0-0.2); EOSINOPHIL # 0.3 TH/MM3 (0-0.4); EOSINOPHIL % 4.7 % (0.0-4.0); HEMATOCRIT 43.1 % (39.0-51.0); HEMO FLAGS DIFF FINAL; LYMPH % 19.8 % (9.0-44.0); LYMPHOCYTE # 1.1 TH/MM3 (1.0-4.8); MEAN CELL VOLUME 82.4 FL (80.0-100.0); MEAN CORPUSCULAR HEMOGLOBIN 27.4 PG (27.0-34.0); MEAN CORPUSCULAR HGB CONC 33.2 % (32.0-36.0); MONO % 18.6 % (0.0-8.0); NEUT % 55.9 % (16.0-70.0); PLATELET COUNT 203 TH/MM3 (150-450); RED BLOOD COUNT 5.23 MIL/MM3 (4.50-5.90); RED CELL DISTRIBUTION WIDTH 13.7 % (11.6-17.2); WHITE BLOOD COUNT 5.4 TH/MM3 (4.0-11.0)
[2017-04-25] MEDS ORDERED: CIPROFLOXACIN 500 MG TAB PO SCH (13:00)
--- NOTE | 2017-04-25 14:54 | HHI.IDPN ---
Subjective Subjective Remarks is a 61 y.o AAM with PMHx of prostate enlargement, hematuria who presented to the [facility] ED in [place] with weakness, fever/chills, and rectal pain. Pt says he had some known microscopic blood in urine for quite a while. Pt reports following with Dr Dinh [facility] in [place]. Pt says he was told of an enlarged prostate in the past and elevated psa. Pt says a prostate bx was done last yr due to his brother having from prostate cancer. He reports the biopsy was negative for malignancy. Lately he noticed more hematuria and a CT a/p was done last week and a Cystoscopy as outpt 1 week prior to admission. The day after the procedure he went to work and later in the evening he did not feel well. On Monday last week he developed fevers/chills and weakness. These symptoms persisted. He was unable to go to work. Developed n/v and some dysuria. Pressure in rectum area. Given bactrim or Cipro by urology (he reports taking a pill twice a day). He took a pill or two of antibiotic and due to worsening clinical condition presented to the ED at [facility]. He was transferrred to [facility]. Urology has seen pt. CT s/o prostatitis but no abscess. IR could not drain as no fluid collection. No plans for surgical intervention. Patient was started on Zosyn IV and Vanco IV. ID was consulted for evaluation and Mment of PSAE bacteremia and prostatitis. Overnight events reviewed No fevers no rash No diarrhea Antibiotics Zosyn IV Lines Line sites with no e.o infection Past Medical History reviewed Allergies: Coded Allergies: No Known Allergies (Unverified , 04/21/17) Objective . Vital Signs Date Time Temp Pulse Resp B/P (MAP) Pulse Ox O2 Delivery O2 Flow Rate FiO2 04/25/17 08:00 96.2 75 18 109/85 (93) 100 04/25/17 00:14 98.5 73 16 138/69 (92) 99 04/25/17 00:10 Room Air 04/24/17 20:00 98.9 74 16 136/75 (95) 100 04/24/17 16:00 97.2 93 18 128/64 (85) 99 . Laboratory Tests Test 04/25/17 12:25 White Blood Count 5.4 TH/MM3 Red Blood Count 5.23 MIL/MM3 Hemoglobin 14.3 GM/DL Hematocrit 43.1 % Mean Corpuscular Volume 82.4 FL Mean Corpuscular Hemoglobin 27.4 PG Mean Corpuscular Hemoglobin Concent 33.2 % Red Cell Distribution Width 13.7 % Platelet Count 203 TH/MM3 Mean Platelet Volume 8.6 FL Neutrophils (%) (Auto) 55.9 % Lymphocytes (%) (Auto) 19.8 % Monocytes (%) (Auto) 18.6 % Eosinophils (%) (Auto) 4.7 % Basophils (%) (Auto) 1.0 % Neutrophils # (Auto) 3.0 TH/MM3 Lymphocytes # (Auto) 1.1 TH/MM3 Monocytes # (Auto) 1.0 TH/MM3 Eosinophils # (Auto) 0.3 TH/MM3 Basophils # (Auto) 0.1 TH/MM3 CBC Comment DIFF FINAL Differential Comment Microbiology Date/Time Source Procedure Growth Status 04/24/17 21:45 Blood Peripheral Aerobic Blood Culture - Preliminary NO GROWTH IN 1 DAY Resulted 04/24/17 21:45 Blood Peripheral Anaerobic Blood Culture - Preliminary NO GROWTH IN 1 DAY Resulted 04/24/17 21:20 Blood Peripheral Aerobic Blood Culture - Preliminary NO GROWTH IN 1 DAY Resulted 04/24/17 21:20 Blood Peripheral Anaerobic Blood Culture - Preliminary NO GROWTH IN 1 DAY Resulted Imaging Last Impressions Consultation 04/24/17 0000 Signed Impressions: Service Date/Time: Monday, April 24, 2017 00:00 - CONCLUSION: 1. Mass involving the left posterior prostate gland could be related to an area of prostatitis or underlying mass. No drainable abscess. 2. Pelvic MRI recommended. Demetrius King MD Physical Exam GENERAL: This is a well-nourished, well-developed patient, in no apparent distress. SKIN: No rashes, ecchymoses or lesions. Cool and dry. HEAD: Atraumatic. Normocephalic. No temporal or scalp tenderness. EYES: Pupils equal round and reactive. Extraocular motions intact. No scleral icterus. No injection or drainage. ENT: Nose without bleeding, purulent drainage or septal hematoma. Throat without erythema, tonsillar hypertrophy or exudate. Uvula midline. Airway patent. NECK: Trachea midline. Supple, nontender, no meningeal signs. CARDIOVASCULAR: Regular rate and rhythm without murmurs, gallops, or rubs. RESPIRATORY: Clear to auscultation. Breath sounds equal bilaterally. No wheezes , rales, or rhonchi. GASTROINTESTINAL: Abdomen soft, non-tender, nondistended. MUSCULOSKELETAL: Extremities without clubbing, cyanosis, or edema. No joint tenderness, effusion, or edema noted. No calf tenderness. Negative Homans sign bilaterally. NEUROLOGICAL: Awake and alert. Cranial nerves II through XII intact. Motor and sensory grossly within normal limits. Five out of 5 muscle strength in all muscle groups. Normal speech. Psych cooperative Rectal exam: deferred. IV line sites with no e.o infection. Assessment & Plan Remarks Sepsis present on admission PSAE bacteremia Prostatitis likely source of infection. UA negative but pt recd some oral bid medication prior to admission ? bactrim ? cipro. Proctalgia: due to prostatitis. Hematuria history Recs DC Zosyn IV for now. Start Cipro oral if he tolerates meds in hospital no fever, normal WBC and clinically doing well may potentially be discharged later today. Patient to follow up with PCP, Urology and ID ( or close to [place] per pt choice). Follow cultures Follow clinically. RAVINDER Ballard called office and was informed Bactrim was prescribed. CT A/P was reviewed by radiology and it appears the pt has abscess on the imaging 2 weeks back (the one prior to outpt cystoscopy) D./w pt above findings he would like to go home today. d.w : pls check if accepts his insurance. Patient will need 4-6 weeks of Cipro and reimaging. If does not do well clinically post discharge or blood cultures positive will need readmission to rule out endocarditis. Patient understands and agrees to come back. Patient was counseled about drug interactions and food interactions with Cipro. Risk of achilles tendinitis/rupture explained as well but he would prefer oral option to IV antibiotics. Will sign off please call back if any change in clinical condition or questions. Carmelina Crane MD Apr 25, 2017 14:54
[2017-04-25] MEDS ORDERED: TAMS5CAP PO (16:18)
[2017-04-25] MEDS ORDERED: CIPR-9 PO (16:18)
--- NOTE | 2017-04-25 16:24 | HHI.DS ---
Discharge Summary Admission Date Apr 22, 2017 at 05:48 Discharge Date: Apr 25, 2017 Admitting Diagnosis prostate mass uti/ possible sepsis (1) Prostate mass ICD Codes: N42.9 - Disorder of prostate, unspecified Status: Acute (2) Hematuria ICD Codes: R31.9 - Hematuria, unspecified Status: Acute (3) Pseudomonal bacteremia ICD Codes: R78.81 - Bacteremia (4) UTI (urinary tract infection) ICD Codes: N39.0 - Urinary tract infection, site not specified Status: Acute Brief History Pt is 61 yo male presenting to ED with weakness, fever/chills, and rectal pain. Pt says he had some known microscopic blood in urine for quite a while. Pt reports following with Dr Dinh [facility] in [place]. Pt says he was told of an enlarged prostate in the past and elevated psa. Pt says a prostate bx was done last yr and reports were negative for malignancy. Lately he noticed more hematuria and a CT a/p was done last week and a Cystoscopy on Monday. On Monday he developed fevers/chills and weakness. These symptoms persisted. He was unable to go to work. Developed n/v and some dysuria. Pressure in rectum area. Given bactrim Monday by Urology but pt sx's persisted and presented to ED and transferred here. CT imaging concerning for enlarged prostate and masslike area extending to rectal area. vanco and zosyn given in ED. Pt says his fever at home was up to 105. CBC/BMP: 04/25/17 1225 04/23/17 0520 Significant Findings Laboratory Tests Test 04/22/17 16:36 04/22/17 20:16 04/23/17 05:20 04/25/17 12:25 Prostate Specific Antigen 18.31 NG/ML (0.00-4.00) Platelet Count 129 TH/MM3 (150-450) 123 TH/MM3 (150-450) Neutrophils (%) (Auto) 89.1 % (16.0-70.0) 73.8 % (16.0-70.0) Lymphocytes (%) (Auto) 4.6 % (9.0-44.0) Lymphocytes # (Auto) 0.2 TH/MM3 (1.0-4.8) 0.3 TH/MM3 (1.0-4.8) White Blood Count 3.6 TH/MM3 (4.0-11.0) Monocytes (%) (Auto) 14.5 % (0.0-8.0) 18.6 % (0.0-8.0) Calcium Level 8.2 MG/DL (8.5-10.1) Eosinophils (%) (Auto) 4.7 % (0.0-4.0) Monocytes # (Auto) 1.0 TH/MM3 (0-0.9) PE at Discharge GENERAL: This is a well-nourished, well-developed patient, in no apparent distress. CARDIOVASCULAR: Regular rate and rhythm without murmurs, gallops, or rubs. RESPIRATORY: Clear to auscultation. Breath sounds equal bilaterally. No wheezes , rales, or rhonchi. GASTROINTESTINAL: Abdomen soft, non-tender, nondistended. Normal active bowel sounds MUSCULOSKELETAL: Extremities without clubbing, cyanosis, or edema. NEURO: Alert & Oriented x4 to person, place, time, situation. Moves all ext x4 Hospital Course (1) Prostate mass ICD Codes: N42.9 - Disorder of prostate, unspecified Status: Acute Plan: - comgmt with Urology & CRS - probable prostate abscess - blood culture (04/21/17) growing Pseudomonas. Final sensitivities should be available tomorrow morning. - CT abd/pelvis (04/21/17) - Massive prostate 7cm with apparent mass projecting toward rectum around 4cm concerning for malignancy vs abscess per urology. - Previous CT a/p (04/12/17) & report brought to Hospital by pt's and placed on chart for comparison - prostate 6.6 x 6.2 cm no mention of the 4cm posterior mass. - Case d/w Dr. Hidalgo (04/24/17). - IR felt projection from prostate too small to drain or biopsy - Recommended discharge once afebrile x 24 hours and f/u with Dr. Dinh. - Case d/w Dr. Crane, ID. She will consult (2) Hematuria ICD Codes: R31.9 - Hematuria, unspecified Status: Acute Plan: - see above (3) Pseudomonal bacteremia ICD Codes: R78.81 - Bacteremia Plan: - see above (4) UTI (urinary tract infection) ICD Codes: N39.0 - Urinary tract infection, site not specified Status: Acute Plan: - bacteruria - urine cx (04/21/17) --> NO growth Pt Condition on Discharge: Stable Discharge Disposition: Discharge Home Discharge Instructions DIET: Follow Instructions for: Heart Healthy Diet Activities you can perform: Weight Bearing as Flip Follow up Referrals: Infectious Disease - 3 Weeks with Shashank Rangel MD Urology - [address] Subhash Dinh New Medications: Ciprofloxacin (Cipro) 500 Mg Tab 500 MG PO Q12HR for prostate abscess, #60 TAB 0 Refills Tamsulosin (Flomax) 0.4 Mg Cap 0.4 MG PO DAILY for bph, #30 CAP 0 Refills Avelino Thorpe DO Apr 25, 2017 16:24
--- NOTE | 2017-04-25 16:24 | HHI.DCPOC ---
Discharge Care Plan Diagnosis: (1) Pseudomonal bacteremia (2) Prostate abscess (3) UTI (urinary tract infection) Goals to Promote Your Health * To prevent worsening of your condition and complications * To maintain your health at the optimal level Directions to Meet Your Goals Take your medications as prescribed Follow your dietary instruction Follow activity as directed Keep your appointments as scheduled Take your immunizations and boosters as scheduled If your symptoms worsen call your PCP, if no PCP go to Urgent Care Center or Emergency Room Smoking is Dangerous to Your Health. Avoid second hand smoke Call the 24-hour hour crisis hotline for domestic abuse at Avelino Thorpe DO Apr 25, 2017 16:24
== END 2017-04-25 18:20 | disposition home or self-care (01) | DRG 728 ==
LOC: NEDDLT 05:45 → N06B 05:48
PROVIDERS: ADMIT Hospitalist; ATTEND Hospitalist
DX: N41.2 Abscess of prostate (principal); R78.81 Bacteremia; N39.0 Urinary tract infection, site not specified; B96.5 Pseudomonas (aeruginosa) (mallei) (pseudomallei) as the cause of diseases classified elsewhere; R31.9 Hematuria, unspecified; R30.0 Dysuria; Z80.42 Family history of malignant neoplasm of prostate; K62.89 Other specified diseases of anus and rectum; R97.20 Elevated prostate specific antigen [PSA]; Z86.010 Personal history of colon polyps; N40.0 Benign prostatic hyperplasia without lower urinary tract symptoms
CPT/HCPCS: 71010; 74177; 80048; 80053; 81001; 82272; 83605; 83690; 84153; 85025; 87040; 87077; 87086; 87186; 87205; 93005; 96365; 96367; 96375; J1885; J2405; J2543; J3370; J7030; J7050; Q9967